=== PATIENT | male | born 1940 | race Caucasian/White ===

== ENCOUNTER → 2017-05-01 | Outpatient (CLI) | payer MEDICARE, OTHER ==
[~2017-05-01] MED LIST: ASPI81TA17 PO; FELO5TAB PO; KETO10 PO; LISI-363 PO; MEDR4PAK3 PO; NEXI40CA PO; PERC5TAB12 PO; ROBA750T3 PO; TAB-TAB PO; VITA500T83 PO
== END ==
LOC: PHSDC 08:28
PROVIDERS: ATTEND Ophthalmology
DX: H26.492 Other secondary cataract, left eye (principal); H43.813 Vitreous degeneration, bilateral; H18.59 Other hereditary corneal dystrophies; I10 Essential (primary) hypertension; Z96.1 Presence of intraocular lens; Z85.46 Personal history of malignant neoplasm of prostate; Z92.3 Personal history of irradiation; Z79.82 Long term (current) use of aspirin

== ENCOUNTER → 2017-05-22 | Outpatient (CLI) | payer MEDICARE, OTHER ==
--- NOTE | 2017-05-01 08:36 | MH ---
cc: MONTANA BARILLAS DATE OF ADMISSION: 05/22/2017 ADMISSION DIAGNOSIS Cloudy posterior capsule, left eye. HISTORY OF PRESENT ILLNESS This 76-year-old white male is coming through [facility] for the purpose of a YAG laser posterior capsulotomy of the left eye. He is status post bilateral cataract surgery with intraocular lens implants in 2012 and did well postoperatively but now notices decreasing visual acuity, particularly in his left eye and was found to have a cloudy posterior capsule greater in the left eye than the right and elected to have a YAG laser posterior capsulotomy of the left eye at this time. PAST MEDICAL HISTORY The patient has a history of: 1. Hypertension. 2. Prostate cancer. 3. Sciatic nerve problems. PAST SURGICAL HISTORY 1. Bilateral cataract surgery. 2. Abdominal aortic aneurysm. 3. Hernia surgery. 4. Radiation for his prostate cancer. MEDICATIONS Daily medications include: 1. Nexium. 2. Felodipine. 3. Lisinopril. 4. Aspirin. 5. Multivitamins. 6. Vitamin C. 7. Zytiga. ALLERGIES No known allergies. SOCIAL HISTORY, FAMILY HISTORY AND REVIEW OF SYSTEMS All noncontributory. OCULAR EXAM The patient's best corrected visual acuity in room light is 20/30 -1 in the right eye and 20/70 -1 +1 in the left. Visual elliott are full to confrontation testing. Extraocular muscle exam reveals full versions with orthophoria at distance and exophoria at near. Pupils are 3 mm equal, round, and reactive to light without afferent defect. Anterior segment examination reveals a mild ectropion of the lower lids and some central cloudy corneal dystrophy in each eye. A posterior chamber intraocular lens is in place bilaterally with a cloudy posterior capsule greater in the left eye than the right. Intraocular pressure is 22 in the right eye and 19 in the left by applanation tonometry. Dilated fundus exam revealed sharp disks with cup-to-disk ratio 0.4 bilaterally. The macula is clear bilaterally. A posterior vitreous detachment is present bilaterally. IMPRESSION 1. Cloudy posterior capsule, left eye greater than right. 2. Pseudophakia, both eyes. 3. Central cloudy corneal dystrophy, both eyes. 4. Posterior vitreous detachment, both eyes. PLAN The plan is YAG laser posterior capsulotomy of the left eye through [facility]. MD RODY Cox/THERESA /2:03 PM /8:30 AM MIMI
[~2017-05-22] MED LIST changes: +BALANCED SALT SOLN OPHT IRRIG 15 ML BTL ONE; +FLUOROMETHOLONE 0.25% OPHT SUSP 5 ML BTL LEFT EYE ONE; +FLUOROMETHOLONE 0.25% OPHT SUSP 5 ML BTL ONE; +HYPROMELLOSE 0.3 % OPTH GEL 10 GM (0.34 FL OZ) TUBE ONE; +PHENYLEPHRINE HCL 2.5% OPTH SOLN 2 ML BTL LEFT EYE ONE; +PHENYLEPHRINE HCL 2.5% OPTH SOLN 2 ML BTL ONE; +PROPARACAINE HCL 0.5% OPHT SOLN 15 ML BTL LEFT EYE ONE; +PROPARACAINE HCL 0.5% OPHT SOLN 15 ML BTL ONE; +TROPICAMIDE 1% OPHT SOLN 15 ML BTL LEFT EYE ONE; +TROPICAMIDE 1% OPHT SOLN 15 ML BTL ONE; +prednisoLONE ACETATE 1% OPHT SUSP 5 ML BTL ONE
--- NOTE | 2017-05-22 08:57 | MP ---
cc: MONTANA MERINO DATE OF SURGERY: 05/22/2017 PREOPERATIVE DIAGNOSIS Cloudy posterior capsule, left eye. POSTOPERATIVE DIAGNOSIS Cloudy posterior capsule, left eye. OPERATION YAG laser posterior capsulotomy, left eye. SURGEON Montana Merino MD ANESTHESIA Topical. COMPLICATIONS None. INDICATIONS See history and physical previously dictated. PROCEDURE Blood pressure 144/58, pulse 99, respirations 18. A drop of Alphagan P and Mydriacyl were instilled in the left eye. The patient was seated at the YAG laser. A drop of Alcaine was instilled in the left eye and a YAG laser posterior capsulotomy lens was placed on the anterior surface of the left cornea. YAG laser posterior capsulotomy was carried out utilizing 166 exposures of 1.4 millijoules. An adequate opening was seen following the procedure. A drop of Alphagan P was instilled topically. The patient was given a prescription for a topical steroid to be used four times per day and has an appointment for follow up on the first postoperative day in my office. [facility] satisfactory condition. Montana Merino MD SENIOR PLANNER/BT /8:26 AM /8:45 AM
== END ==
LOC: PHSDC 07:00
PROVIDERS: ATTEND Ophthalmology
DX: H26.492 Other secondary cataract, left eye (principal)

== ENCOUNTER 2017-12-13 16:53 | Observation (INO) | payer MEDICARE, OTHER ==
[~2017-12-13 16:53] MED LIST changes: -BALANCED SALT SOLN OPHT IRRIG 15 ML BTL ONE; -FLUOROMETHOLONE 0.25% OPHT SUSP 5 ML BTL LEFT EYE ONE; -FLUOROMETHOLONE 0.25% OPHT SUSP 5 ML BTL ONE; -HYPROMELLOSE 0.3 % OPTH GEL 10 GM (0.34 FL OZ) TUBE ONE; -PHENYLEPHRINE HCL 2.5% OPTH SOLN 2 ML BTL LEFT EYE ONE; -PHENYLEPHRINE HCL 2.5% OPTH SOLN 2 ML BTL ONE; -PROPARACAINE HCL 0.5% OPHT SOLN 15 ML BTL LEFT EYE ONE; -PROPARACAINE HCL 0.5% OPHT SOLN 15 ML BTL ONE; -TROPICAMIDE 1% OPHT SOLN 15 ML BTL LEFT EYE ONE; -TROPICAMIDE 1% OPHT SOLN 15 ML BTL ONE; -prednisoLONE ACETATE 1% OPHT SUSP 5 ML BTL ONE
[2017-12-13] MEDS ORDERED: IOHEXOL 350 MG/ML 10 ML VIAL (for RAD DIAG) IVCONTRAST ONE (16:54)
[2017-12-13 17:13] VITALS: BP 199/100; PULSE 113; RESP 18; TEMP 98.1; O2SAT 97
[2017-12-13] MEDS ORDERED: MORPHINE SULFATE 4 MG/ML INJ IV PUSH ONE (17:30)
[2017-12-13] MEDS ORDERED: RESP: ALBUTEROL 2.5 MG/IPRATROPIUM 0.5 MG NEB (SCH) NEB ONE ×2 (17:30)
[2017-12-13] MEDS ORDERED: ONDANSETRON ODT 4 MG TAB PO ONE (17:30)
[2017-12-13] MEDS ORDERED: predniSONE 20 MG TAB PO ONE (17:30)
[2017-12-13 17:33] LABS: AUTOMATED NEUTROPHIL # 11.3 TH/MM3 (1.8-7.7); BASOPHIL # 0.1 TH/MM3 (0-0.2); BASOPHIL % 0.5 % (0.0-2.0); EOSINOPHIL # 0.2 TH/MM3 (0-0.4); EOSINOPHIL % 1.4 % (0.0-4.0); HEMATOCRIT 40.5 % (39.0-51.0); HEMOGLOBIN 13.8 GM/DL (13.0-17.0); LYMPH % 14.1 % (9.0-44.0); LYMPHOCYTE # 2.1 TH/MM3 (1.0-4.8); MEAN CELL VOLUME 92.6 FL (80.0-100.0); MEAN CORPUSCULAR HEMOGLOBIN 31.5 PG (27.0-34.0); MONO % 7.1 % (0.0-8.0); MONOCYTE # 1.1 TH/MM3 (0-0.9); NEUT % 76.9 % (16.0-70.0); PLATELET COUNT 386 TH/MM3 (150-450); RED BLOOD COUNT 4.37 MIL/MM3 (4.50-5.90); RED CELL DISTRIBUTION WIDTH 13.6 % (11.6-17.2); WHITE BLOOD COUNT 14.8 TH/MM3 (4.0-11.0)
--- NOTE | 2017-12-13 17:45 | PD ---
HPI Chief Complaint: Chest Pain Time Seen by Provider: 17:19 Travel History International Travel<30 days: No Contact w/Intl Traveler<30days: No Traveled to known affect area: No History of Present Illness HPI This patient complains of chest pain. Duration 2 hours. Severity is moderate to severe. No alleviating factors. He describes as a dull aching pressure. Is located in the center and right lower chest. He denies history of cardiac disease. He has been smoking for 60 years and takes daily prednisone and uses inhalers. No fever or productive cough. No exacerbating factors. Symptoms are not exertional. He is short of breath PFSH Past Medical History Asthma: No Heart Rhythm Problems: No Cancer: Yes (PROSTATE CA 2009 RADIATION RX ) Cardiovascular Problems: No High Cholesterol: Yes Chest Pain: No Congestive Heart Failure: No COPD: No Cerebrovascular Accident: No Diabetes: No Diminished Hearing: No Endocrine: No GERD: Yes Genitourinary: No Hepatitis: No Hiatal Hernia: No Hypertension: Yes Immune Disorder: No Musculoskeletal: Yes (ARTHRITIS ) Neurologic: No Psychiatric: Yes (CLAUSTROPHOBIA) Reproductive: No Respiratory: No Migraines: No Radiation Therapy: Yes (2008) Seizures: No Sleep Apnea: No Thyroid Disease: No Ulcer: No Past Surgical History Abdominal Surgery: Yes (AAA REPAIR -; RT INGUINAL HERNIA REPAIR) Cardiac Surgery: No Ear Surgery: No Endocrine Surgery: No Eye Surgery: Yes (CATARACT SX RIGHT EYE ) Genitourinary Surgery: No Gynecologic Surgery: No Joint Replacement: No Oral Surgery: No Pacemaker: No Thoracic Surgery: No Other Surgery: Yes (SKIN CANCER REMOVAL) Social History Alcohol Use: No Tobacco Use: Yes (2-3 DAY) Substance Use: No Allergies-Medications (Allergen,Severity, Reaction): Coded Allergies: No Known Allergies (Unverified , 01/21/15) Reported Meds & Prescriptions Reported Meds & Active Scripts Active Percocet 5-325 mg (Oxycodone/Acetaminophen) Oxycodone 5/325 Acetaminophen Tab 1 Tab PO Q6H PRN Toradol (Ketorolac Tromethamine) 10 Mg Tab 10 Mg PO Q6 PRN *DO NOT EXCEED 40 MG/DAY* *DURATION IS NOT TO EXCEED 5 DAYS* Medrol Dosepak (Methylprednisolone) 4 Mg Kendrick 4 Mg PO DIRECTED TAKE DIRECTED Robaxin-750 (Methocarbamol) 750 Mg Tab 750 Mg PO QID PRN Reported Vitamin C (Ascorbic Acid) 500 Mg Tab 500 Mg PO DAILY Multivitamin (Multivitamins) 1 Tab Tab 1 Tab PO DAILY Aspirin EC Low Dose (Aspirin) 81 Mg Tab 81 Mg PO DAILY Lisinopril 20 mg (Lisinopril) 20 Mg Tab 20 Mg PO DAILY Felodipine Er (Felodipine) 5 Mg Tab 5 Mg PO DAILY Nexium (Esomeprazole Magnesium) 40 Mg Cap 40 Mg PO DAILY Review of Systems General / Constitutional: No: Fever Eyes: No: Visual changes HENT: No: Headaches Cardiovascular: Positive: Chest Pain or Discomfort, Tachycardia Respiratory: Positive: Shortness of Breath Gastrointestinal: No: Abdominal Pain Genitourinary: No: Dysuria Musculoskeletal: No: Pain Skin: No Rash Neurologic: No: Weakness Psychiatric: No: Depression Endocrine: No: Polydipsia Hematologic/Lymphatic: No: Easy Bruising Physical Exam Narrative GENERAL: Well-nourished, well-developed patient in distress from chest pain And shortness of breath. SKIN: Focused skin assessment reveals no rash and nodules. Skin is Warm and dry. HEAD: Atraumatic. Normocephalic. EYES: Pupils equal and round. No scleral icterus. No injection or drainage. ENT: No nasal bleeding or discharge. Mucous membranes pink and moist. NECK: Trachea midline. No JVD. CARDIOVASCULAR: Regular rate and rhythm. No murmur appreciated. Tachycardic 115 RESPIRATORY: No accessory muscle use. Clear to auscultation. Breath sounds equal bilaterally. GASTROINTESTINAL: Abdomen soft, non-tender, nondistended. Hepatic and splenic margins not palpable. MUSCULOSKELETAL: No obvious deformities. No clubbing. No cyanosis. No edema. NEUROLOGICAL: Awake and alert. No obvious cranial nerve deficits. Motor grossly within normal limits. Normal speech. PSYCHIATRIC: Appropriate mood and affect; insight and judgment normal. Data Data Last Documented VS Vital Signs Date Time Temp Pulse Resp B/P (MAP) Pulse Ox O2 Delivery O2 Flow Rate FiO2 12/13/17 17:13 98.1 113 18 199/100 (133) 97 Orders Orders Electrocardiogram (12/13/17 ) Complete Blood Count With Diff (12/13/17 17:01) Basic Metabolic Panel (Bmp) (12/13/17 17:01) Ckmb (Isoenzyme) Profile (12/13/17 17:01) Troponin I (12/13/17 17:01) Prothrombin Time / Inr (Pt) (12/13/17 17:29) Act Partial Throm Time (Ptt) (12/13/17 17:29) Chest, Single Ap (12/13/17 ) Morphine Inj (Morphine Inj) (12/13/17 17:30) Ondansetron Odt (Zofran Odt) (12/13/17 17:30) Albuterol-Ipratropium Neb (Duoneb Neb) (12/13/17 17:30) Albuterol-Ipratropium Neb (Duoneb Neb) (12/13/17 17:30) Prednisone (Deltasone) (12/13/17 17:30) Labs Laboratory Tests Test 12/13/17 17:04 White Blood Count 14.8 TH/MM3 Red Blood Count 4.37 MIL/MM3 Hemoglobin 13.8 GM/DL Hematocrit 40.5 % Mean Corpuscular Volume 92.6 FL Mean Corpuscular Hemoglobin 31.5 PG Mean Corpuscular Hemoglobin Concent 34.0 % Red Cell Distribution Width 13.6 % Platelet Count 386 TH/MM3 Mean Platelet Volume 7.0 FL Neutrophils (%) (Auto) 76.9 % Lymphocytes (%) (Auto) 14.1 % Monocytes (%) (Auto) 7.1 % Eosinophils (%) (Auto) 1.4 % Basophils (%) (Auto) 0.5 % Neutrophils # (Auto) 11.3 TH/MM3 Lymphocytes # (Auto) 2.1 TH/MM3 Monocytes # (Auto) 1.1 TH/MM3 Eosinophils # (Auto) 0.2 TH/MM3 Basophils # (Auto) 0.1 TH/MM3 CBC Comment DIFF FINAL Differential Comment Total Creatine Kinase 46 U/L Troponin I LESS THAN 0.02 NG/ML MDM Medical Decision Making Medical Screen Exam Complete: Yes Emergency Medical Condition: Yes Medical Record Reviewed: Yes Differential Diagnosis Differential diagnosis includes MO, angina, pericarditis, pleurisy, GERD, PE, aortic aneurysm Narrative Course I have reviewed the patient's electronic medical record. I have initiated a workup to start with lab studies and EKG and chest x-ray EKG shows sinus tachycardia without ST elevation I gave him a dose of morphine and Zofran for symptom relief Also gave him multiple nebulizers and a dose of steroid use. Chest x-ray is normal. Labs are pending. Checked out to the evening physician Critical Care Narrative Aggregate critical care time was 40 minutes. Time to perform other separately billable procedures was not included in the critical care time. My time did not include minutes spent treating any other patients simultaneously or on activities that did not directly contribute to the patient's treatment. The services I provided to this patient were to treat and/or prevent clinically significant deterioration that could result in: Cardiopulmonary arrest, myocardial infarction, cardiac arrhythmia, respiratory collapse I provided critical care services requiring my management, as noted below: Chart data review, documentation time, medication orders and management, vital sign assessments/reviewing monitor data, ordering and reviewing lab tests, ordering and interpreting/reviewing x-rays and diagnostic studies, care of the patient and discussion of the patient with the admitting physicians. Patrick Lackey MD December 13, 2017 17:45
[2017-12-13 17:54] LABS: TROPONIN I LESS THAN 0.02 NG/ML (0.02-0.05)
--- NOTE | 2017-12-13 18:04 | RADRPT ---
EXAM DATE/TIME: 12/13/2017 17:38 [facility] COMPARISON: CHEST SINGLE AP, July 15, 2012, 9:53. INDICATIONS : Chest pain. MEDICAL HISTORY : None. SURGICAL HISTORY : Abdominal aortic aneurysm repair. ENCOUNTER: Initial ACUITY: 1 day PAIN SCORE: 10/10 LOCATION: Right chest FINDINGS: 2 portable frontal views of the chest show lungs to be clear. No infiltrate or effusion. Heart is nor mal in size. There is increase in density of the bony structures particular involving the lumbar spin e. CONCLUSION: 1. Sclerotic changes involving the lumbar spine and other visualized bony structures in a diffuse fas hion worrisome for metastatic disease. Vincenzo Trujillo Jr., MD on December 13, 2017 at 18:00 Board Certified Radiologist. This report was verified electronically.
[2017-12-13 19:01] LABS: BICARBONATE 27.2 MEQ/L (21.0-32.0); BLOOD UREA NITROGEN 25 MG/DL (7-18); CALCIUM 9.7 MG/DL (8.5-10.1); CHLORIDE 99 MEQ/L (98-107); CREATININE 1.06 MG/DL (0.60-1.30); GLOMERULAR FILTRATION RATE 68 ML/MIN (>89); GLUCOSE,RANDOM 104 MG/DL (74-106); SODIUM (NA) 136 MEQ/L (136-145)
--- NOTE | 2017-12-13 20:35 | RADRPT ---
EXAM DATE/TIME: 12/13/2017 20:16 [facility] COMPARISON: No previous studies available for comparison. INDICATIONS : Short of breath. IV CONTRAST: 80 cc Omnipaque 350 (iohexol) IV RADIATION DOSE: 15.41 CTDIvol (mGy) MEDICAL HISTORY : Hypertension. Carcinoma, prostate. SURGICAL HISTORY : None. ENCOUNTER: Initial ACUITY: 1 day PAIN SCALE: 4/10 LOCATION: chest TECHNIQUE: Volumetric scanning of the chest was performed using a pulmonary embolism protocol MIP images were re constructed. Using automated exposure control and adjustment of the mA and/or kV according to patien t size, radiation dose was kept as low as reasonably achievable to obtain optimal diagnostic quality images. DICOM format image data is available electronically for review and comparison. Follow-up recommendations for detected pulmonary nodules are based at a minimum on nodule size and pa tient risk factors according to Fleischner Society Guidelines. FINDINGS: PULMONARY ARTERIES: No filling defects are seen in the pulmonary arteries through the segmental level. LUNGS: Diffuse emphysematous changes. Chronic interstitial changes within the visualized lung bases. There i s associated mild cylindrical bronchiectasis involving the right basilar segments. No acute infiltrat e. No discrete parenchymal mass. PLEURAE: There is no pleural thickening or pleural effusion. MEDIASTINUM: The heart is normal in size without pericardial effusion. Significant coronary artery and aortic athe rosclerotic calcifications are noted. This generates an irregular luminal contour to the descending a shakira. No mass or adenopathy. MUSCULOSKELETAL: Diffuse sclerotic metastases throughout all visualized bony structures. No acute fracture observed. MISCELLANEOUS: The visualized upper abdominal organs demonstrate no acute abnormality. CONCLUSION: 1. Diffuse sclerotic metastases. Consider prostate cancer. 2. No pulmonary emboli. 3. 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 4. Emphysematous change. Vincenzo Trujillo Jr., MD on December 13, 2017 at 20:29 Board Certified Radiologist. This report was verified electronically.
[2017-12-13 20:41] LABS: INTERNATIONAL NORMALIZED RATIO 0.9 RATIO; PROTHROMBIN TIME - PATIENT 9.6 SEC (9.8-11.6)
--- NOTE | 2017-12-13 21:13 | PD ---
Data Data Last Documented VS Vital Signs Date Time Temp Pulse Resp B/P (MAP) Pulse Ox O2 Delivery O2 Flow Rate FiO2 12/13/17 17:13 98.1 113 18 199/100 (133) 97 Orders Orders Electrocardiogram (12/13/17 ) Complete Blood Count With Diff (12/13/17 17:01) Basic Metabolic Panel (Bmp) (12/13/17 17:01) Ckmb (Isoenzyme) Profile (12/13/17 17:01) Troponin I (12/13/17 17:01) Prothrombin Time / Inr (Pt) (12/13/17 17:29) Act Partial Throm Time (Ptt) (12/13/17 17:29) Chest, Single Ap (12/13/17 ) Morphine Inj (Morphine Inj) (12/13/17 17:30) Ondansetron Odt (Zofran Odt) (12/13/17 17:30) Albuterol-Ipratropium Neb (Duoneb Neb) (12/13/17 17:30) Albuterol-Ipratropium Neb (Duoneb Neb) (12/13/17 17:30) Prednisone (Deltasone) (12/13/17 17:30) Ct Pulmonary Angiogram (12/13/17 ) Iohexol 350 Inj (Omnipaque 350 Inj) (12/13/17 16:54) Oxymetazoline 0.05% Kemar Gardner (Afrin 0.0 (12/13/17 21:15) Admit Order (Ed Use Only) (12/13/17 ) Business Development Director / Telemetry TORSTEN.Q8H (12/13/17 21:51) Vital Signs (Adult) Q4H (12/13/17 21:51) Diet Heart Healthy (12/14/17 Breakfast) Activity Bed Rest (12/13/17 21:51) Notify Dr: Other (12/13/17 21:51) Labs Laboratory Tests Test 12/13/17 17:04 12/13/17 19:40 White Blood Count 14.8 TH/MM3 Red Blood Count 4.37 MIL/MM3 Hemoglobin 13.8 GM/DL Hematocrit 40.5 % Mean Corpuscular Volume 92.6 FL Mean Corpuscular Hemoglobin 31.5 PG Mean Corpuscular Hemoglobin Concent 34.0 % Red Cell Distribution Width 13.6 % Platelet Count 386 TH/MM3 Mean Platelet Volume 7.0 FL Neutrophils (%) (Auto) 76.9 % Lymphocytes (%) (Auto) 14.1 % Monocytes (%) (Auto) 7.1 % Eosinophils (%) (Auto) 1.4 % Basophils (%) (Auto) 0.5 % Neutrophils # (Auto) 11.3 TH/MM3 Lymphocytes # (Auto) 2.1 TH/MM3 Monocytes # (Auto) 1.1 TH/MM3 Eosinophils # (Auto) 0.2 TH/MM3 Basophils # (Auto) 0.1 TH/MM3 CBC Comment DIFF FINAL Differential Comment Blood Urea Nitrogen 25 MG/DL Creatinine 1.06 MG/DL Random Glucose 104 MG/DL Calcium Level 9.7 MG/DL Sodium Level 136 MEQ/L Potassium Level 4.2 MEQ/L Chloride Level 99 MEQ/L Carbon Dioxide Level 27.2 MEQ/L Anion Gap 10 MEQ/L Estimat Glomerular Filtration Rate 68 ML/MIN Total Creatine Kinase 46 U/L Troponin I LESS THAN 0.02 NG/ML Prothrombin Time 9.6 SEC Prothromb Time International Ratio 0.9 RATIO Activated Partial Thromboplast Time 24.7 SEC [facility] Medical Record Reviewed: Yes Supervised Visit with GRISELDA: No Narrative Course Please refer to the outgoing provider note. The EKG shows no acute ischemic injury pattern. We can see the CT scan reveals bone disease without PE. There is calcification of the coronary vasculature. The patient takes aspirin daily. He has history of hypertension. There is a family history of coronary artery disease in the father side. Is also 77-year-old male. This raises his ZACHARY risk score to about 3. The patient will be a candidate for chest pain center however he is tachycardic to about 110 with an unknown etiology at this time. He also has persistent pleuritic pain primarily on the right side. D/w Dr Fraser. Diagnosis Primary Impression: Chest pain Qualified Codes: R07.9 - Chest pain, unspecified Additional Impressions: Tachypnea SOB (shortness of breath) Prostate CA Tachycardia Admitting Information Admitting Physician Requests: Josh Mujica MD December 13, 2017 21:13
[2017-12-13] MEDS ORDERED: OXYMETAZOLINE HCL 0.05% 15 ML NASAL SPRAY NASAL ONE (21:15)
[2017-12-13] MEDS ORDERED: TAMS0.4C4 (21:47)
[2017-12-13] MEDS ORDERED: LISI-515 PO (21:47)
[2017-12-13] MEDS ORDERED: VITA250T3 PO (21:47)
[2017-12-13] MEDS ORDERED: ZYTI250T PO (21:47)
[2017-12-13] MEDS ORDERED: MULT-65 PO (21:47)
[2017-12-13] MEDS ORDERED: VITA200C3 PO (21:47)
[2017-12-13] MEDS ORDERED: PRED5TAB PO (21:47)
[2017-12-13] MEDS ORDERED: FELO5TAB PO (21:47)
[2017-12-13] MEDS ORDERED: ASPI-516 CHEW (21:47)
[2017-12-13] MEDS ORDERED: ESOM1CAP16 PO (21:47)
[2017-12-13] MEDS ORDERED: MAGNESIUM HYDROXIDE SUSP 30 ML CUP PO PRN (22:00)
[2017-12-13] MEDS ORDERED: LACTULOSE SYRUP 20 GM/30 ML CUP PO PRN (22:00)
[2017-12-13] MEDS ORDERED: ACETAMINOPHEN 325 MG TAB PO PRN (22:00)
[2017-12-13] MEDS ORDERED: MORPHINE SULFATE 4 MG/ML INJ IV PUSH PRN (22:00)
[2017-12-13] MEDS ORDERED: SENNOSIDES 8.6 MG TAB PO PRN (22:00)
[2017-12-13] MEDS ORDERED: RESP: ALBUTEROL 2.5 MG/IPRATROPIUM 0.5 MG NEB (PRN) NEB (22:00)
[2017-12-13] MEDS ORDERED: SODIUM CHLORIDE 0.9% FLUSH 10 ML FLUSH IV FLUSH PRN (22:00)
[2017-12-13] MEDS ORDERED: METOCLOPRAMIDE HCL 10 MG/2 ML VIAL IV PUSH PRN (22:00)
[2017-12-13] MEDS ORDERED: BISACODYL 10 MG SUPP RECTAL PRN (22:00)
[2017-12-13] MEDS ORDERED: ACETAMINOPHEN/HYDROcodone 325 MG/5 MG TAB PO PRN (22:00)
[2017-12-13 22:17] VITALS: BP 158/97; PULSE 110; RESP 18; O2SAT 94
[2017-12-13 22:58] VITALS: BP 183/86; PULSE 103; RESP 16; TEMP 98.4; O2SAT 94
[2017-12-14] VITALS (8 sets, daily range): BP systolic 133–189; BP diastolic 64–93; PULSE 82–99; RESP 16–18; TEMP 97.8–98.7; O2SAT 96–98
--- NOTE | 2017-12-14 00:36 | HHI.HP ---
HPI Service [facility] Primary Care Physician Bradly Nielson MD Admission Diagnosis Pleuritic Chest Pain; Tachycardia Diagnoses: (1) Chest pain Diagnosis: Principal (2) Tachycardia Diagnosis: Principal (3) SOB (shortness of breath) Diagnosis: Principal (4) Prostate CA Diagnosis: Principal Travel History International Travel<30 Days: No Contact w/Intl Traveler <30 Da: No Traveled to Known Affected Are: No History of Present Illness This is a 69-year-old male with a PMH of Metastatic Prostate CA, HTN and Tobacco Abuse who presented to the ER with complaints of chest pain x2 hrs. States chest pain is substernal, moderate, 7/10, non-radiating, worse w/ deep inspiration. Pt states he was recently seen at Urgent Care approx 2wks ago for URI, s/p antibiotics w/ some improvement. Takes Prednisone 5mg qd. Denies fever, chills, cough or sick contacts. On arrival, BP 199/100, HR 113, O2 sat 97% on RA, Afebrile. WBC 14.8. Chemistry essentially unremarkable except for BUN 25. Troponin negative. INR 0.9. CXR sclerotic changes involving lumbar spine consistent with metastatic disease. CTA Pulm negative for PE, diffuse sclerotic metastases, diffuse atherosclerotic disease of the thoracic aorta and coronary arteries. Pt states he is aware of spinal mets from Prostate CA, however unaware of pulmonary metastasis. Follows w/ Dr. Allen for Urology. While in ER pt w/ persistent tachycardia and c/o chest pain, asked to admit for further evaluation. Review of Systems Except as stated in HPI: all other systems reviewed are Neg ROS: 14 point review of systems otherwise negative. Past Family Social History Past Medical History PMH: Metastatic Prostate CA, HTN and Tobacco Abuse Past Surgical History PAST SURGICAL HISTORY: AAA Repair, Right Inguinal Hernia, Cataract Surgery Allergies: Coded Allergies: No Known Allergies (Unverified , 01/21/15) Family History PAST FAMILY HISTORY: Reviewed. No h/o DM or CAD Social History PAST SOCIAL HISTORY: Smokes 2-3 cigarettes per day. Negative for alcohol or drugs. Physical Exam Vital Signs Vital Signs Date Time Temp Pulse Resp B/P (MAP) Pulse Ox O2 Delivery O2 Flow Rate FiO2 12/14/17 00:17 98.7 89 16 151/82 (105) 96 12/13/17 22:58 98.4 103 16 183/86 (118) 94 12/13/17 22:17 110 18 158/97 (117) 94 Nasal Cannula 2.00 12/13/17 17:13 98.1 113 18 199/100 (133) 97 Physical Exam PE: GENERAL: Elderly white male in no acute distress. Family at bedside. HEENT: PERRLA, EOMI. No scleral icterus or conjunctival pallor. No lid lag or facial droop. CARDIOVASCULAR: Tachycardia, HR 112. No obvious murmurs to auscultation. No chest tenderness to palpation. RESPIRATORY: No obvious rhonchi or wheezing. Clear to auscultation. Breath sounds equal bilaterally. GASTROINTESTINAL: Abdomen soft, non-tender, nondistended. BS normal. MUSCULOSKELETAL: Extremities without clubbing, cyanosis, or edema. No obvious deformities. NEUROLOGICAL: Awake, alert and oriented x4. No focal neurologic deficits. Moving both upper and lower extremities spontaneously. Laboratory Laboratory Tests Test 12/13/17 17:04 12/13/17 19:40 White Blood Count 14.8 Red Blood Count 4.37 Hemoglobin 13.8 Hematocrit 40.5 Mean Corpuscular Volume 92.6 Mean Corpuscular Hemoglobin 31.5 Mean Corpuscular Hemoglobin Concent 34.0 Red Cell Distribution Width 13.6 Platelet Count 386 Mean Platelet Volume 7.0 Neutrophils (%) (Auto) 76.9 Lymphocytes (%) (Auto) 14.1 Monocytes (%) (Auto) 7.1 Eosinophils (%) (Auto) 1.4 Basophils (%) (Auto) 0.5 Neutrophils # (Auto) 11.3 Lymphocytes # (Auto) 2.1 Monocytes # (Auto) 1.1 Eosinophils # (Auto) 0.2 Basophils # (Auto) 0.1 CBC Comment DIFF FINAL Differential Comment Blood Urea Nitrogen 25 Creatinine 1.06 Random Glucose 104 Calcium Level 9.7 Sodium Level 136 Potassium Level 4.2 Chloride Level 99 Carbon Dioxide Level 27.2 Anion Gap 10 Estimat Glomerular Filtration Rate 68 Total Creatine Kinase 46 Troponin I LESS THAN 0.02 Prothrombin Time 9.6 Prothromb Time International Ratio 0.9 Activated Partial Thromboplast Time 24.7 Result Diagram: 12/13/17170312/13/17 170 Caprini VTE Risk Assessment Caprini VTE Risk Assessment: No/Low Risk (score <= 1) Caprini Risk Assessment Model Point Value = 1 Point Value = 2 Point Value = 3 Point Value = 5 Age 41-60 Minor surgery BMI > 25 kg/m2 Swollen legs Varicose veins or History of unexplained or recurrent spontaneous Oral contraceptives or hormone replacement Sepsis (< 1 month) Serious lung disease, including pneumonia (< 1 month) Abnormal pulmonary function Acute myocardial infarction Congestive heart failure (< 1 month) History of inflammatory bowel disease Medical patient at bed rest Age 61-74 Arthroscopic surgery Major open surgery (> 45 min) Laparoscopic surgery (> 45 min) Malignancy Confined to bed (> 72 hours) Immobilizing plaster cast Central venous access Age >= 75 History of VTE Family history of VTE Factor V Leiden Prothrombin [id number] Lupus anticoagulant Anticardiolipin antibodies Elevated serum homocysteine Heparin-induced thrombocytopenia Other congenital or acquired thrombophilia Stroke (< 1 month) Elective arthroplasty Hip, pelvis, or leg fracture Acute spinal cord injury (< 1 month) Prophylaxis Regimen Total Risk Factor Score Risk Level Prophylaxis Regimen 0-1 Low Early ambulation 2 Moderate Order ONE of the following: *Sequential Compression Device (SCD) *Heparin 5000 units SQ BID 3-4 Higher Order ONE of the following medications: *Heparin 5000 units SQ TID *Enoxaparin/Lovenox 40 mg SQ daily (WT < 150 kg, CrCl > 30 mL/min) *Enoxaparin/Lovenox 30 mg SQ daily (WT < 150 kg, CrCl > 10-29 mL/min) *Enoxaparin/Lovenox 30 mg SQ BID (WT < 150 kg, CrCl > 30 mL/min) AND/OR *Sequential Compression Device (SCD) 5 or more Highest Order ONE of the following medications: *Heparin 5000 units SQ TID (Preferred with Epidurals) *Enoxaparin/Lovenox 40 mg SQ daily (WT < 150 kg, CrCl > 30 mL/min) *Enoxaparin/Lovenox 30 mg SQ daily (WT < 150 kg, CrCl > 10-29 mL/min) *Enoxaparin/Lovenox 30 mg SQ BID (WT < 150 kg, CrCl > 30 mL/min) AND *Sequential Compression Device (SCD) Assessment and Plan Problem List: (1) Chest pain ICD Code: R07.9 - Chest pain, unspecified Status: Acute (2) Tachycardia ICD Code: R00.0 - Tachycardia, unspecified (3) SOB (shortness of breath) ICD Code: R06.02 - Shortness of breath (4) Prostate CA ICD Code: C61 - Malignant neoplasm of prostate Assessment and Plan A/P: 1. Chest Pain: pleuritic in nature, possibly due to bronchospasm from postnasal drip/recent URI, however CTA Pulm w/ significant atherosclerotic disease of aorta and coronary arteries, r/o ACS. Initial trop negative, EKG w/ no acute ischemia. Admit to Observation, telemetry, check serial cardiac enzymes. ASA, Statin, Metoprolol. NTG/Morphine prn. Check Lipid Profile. Consult Cardiology as needed for further evaluation. 2. Tachycardia: HR 110's while in ER, sinus, s/p DuoNeb in ER in addition to Afrin likely contributing to tachycardia. Will switch to Xopenex, hold Afrin. 3. SOB: likely multifactorial, recent URI/postnasal gtt w/ likely bronchospasm in addition to pulmonary metastasis on CTA, no PE noted. Symbicort , Xopenex prn, WBC however on chronic steroid therapy and no signs of infection on imaging, will hold off on antibiotics at this time. 4. Prostate CA: w/ Mets to spine, CTA Pulm showered scattered metastatic disease, pt unaware of pulmonary mets until now, following w/ Dr. Allen as outpatient, continue w/ outpatient follow up as scheduled. 5. DVT Prophylaxis: SCD/Teds 6. Social work for d/c planning as needed. 7. Case discussed w/ ER physician at length, labs/records/imaging reviewed by Melia Diana MD December 14, 2017 00:36
[2017-12-14] MEDS: SODIUM CHLOR 0.9% 1000 ML INJ 1,000 ML IV SCH ×2 (02:30→08:20)
--- NOTE | 2017-12-14 08:16 | HHI.PR ---
Subjective Remarks Follow with Pleuritic chest pain December 14, 2017-patient seen and examined, reports significant improvement of chest pressure and pain. Denies any shortness of breath or dizziness. Vital stable this morning. Objective Vitals Vital Signs Date Time Temp Pulse Resp B/P (MAP) Pulse Ox O2 Delivery O2 Flow Rate FiO2 12/14/17 07:57 97.8 99 18 171/93 (119) 96 12/14/17 04:00 95 12/14/17 03:54 98.3 91 16 133/64 (87) 97 12/14/17 02:00 93 12/14/17 00:17 98.7 89 16 151/82 (105) 96 12/13/17 22:58 98.4 103 16 183/86 (118) 94 12/13/17 22:17 110 18 158/97 (117) 94 Nasal Cannula 2.00 12/13/17 17:13 98.1 113 18 199/100 (133) 97 I/O 12/13/17 12/13/17 12/13/17 12/14/17 12/14/17 12/14/17 07:00 15:00 23:00 07:00 15:00 23:00 Output Total 300 ml 475 ml Balance -300 ml -475 ml Output Urine Total 300 ml 475 ml Result Diagram: 12/13/17 1704 12/13/17 1704 Imaging Last Impressions Chest X-Ray 12/13/17 0000 Signed Impressions: Service Date/Time: Wednesday, December 13, 2017 17:38 - CONCLUSION: 1. Sclerotic changes involving the lumbar spine and other visualized bony structures in a diffuse fashion worrisome for metastatic disease. Vincenzo Trujillo Jr., MD CT Angiography 12/13/17 0000 Signed Impressions: Service Date/Time: Wednesday, December 13, 2017 20:16 - CONCLUSION: 1. Diffuse sclerotic metastases. Consider prostate cancer. 2. No pulmonary emboli. 3. 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 4. Emphysematous change. Vincenzo Trujillo Jr., MD Objective Remarks GENERAL: NAD SKIN: Warm and dry. HEAD: Normocephalic. EYES: No scleral icterus. No injection or drainage. NECK: Supple, trachea midline. No JVD or lymphadenopathy. CARDIOVASCULAR: Regular rate and rhythm without murmurs, gallops, or rubs. RESPIRATORY: Breath sounds equal bilaterally. No accessory muscle use. GASTROINTESTINAL: Abdomen soft, non-tender, nondistended. MUSCULOSKELETAL: No cyanosis, or edema. BACK: Nontender without obvious deformity. No CVA tenderness. A/P Problem List: (1) Chest pain ICD Code: R07.9 - Chest pain, unspecified Status: Resolved (2) Tachycardia ICD Code: R00.0 - Tachycardia, unspecified (3) SOB (shortness of breath) ICD Code: R06.02 - Shortness of breath (4) Prostate CA ICD Code: C61 - Malignant neoplasm of prostate Assessment and Plan 77-year-old man with 1. Chest Pain: pleuritic in nature, possibly due to bronchospasm from postnasal drip/recent URI.CTA Pulm w/ significant atherosclerotic disease of aorta and coronary arteries, ACS ruled out per protocol with serial cardiac enzymes and EKGs. Currently on ASA, Statin, Metoprolol. NTG/Morphine prn. Check Lipid Profile. Consult Cardiology as needed for further evaluation. 2. Tachycardia: Secondary to above 3. SOB: resolved. recent URI/postnasal gtt w/ likely bronchospasm in addition to pulmonary metastasis on CTA, no PE noted. Symbicort, Xopenex prn, WBC however on chronic steroid therapy and no signs of infection on imaging, continue to hold off on antibiotics at this time. 4. Prostate CA: w/ Mets to spine, CTA Pulm showered scattered metastatic disease, pt unaware of pulmonary mets until now, following w/ Dr. Allen as outpatient, continue w/ outpatient follow up as scheduled. 5. DVT Prophylaxis: SCD/Deven Dutta MD December 14, 2017 08:16
[2017-12-14 08:25] LABS: AUTOMATED NEUTROPHIL # 15.1 TH/MM3 (1.8-7.7); BASOPHIL % 0.1 % (0.0-2.0); HEMATOCRIT 37.9 % (39.0-51.0); HEMOGLOBIN 12.9 GM/DL (13.0-17.0); LYMPHOCYTE # 0.5 TH/MM3 (1.0-4.8); MEAN CELL VOLUME 91.2 FL (80.0-100.0); MEAN CORPUSCULAR HEMOGLOBIN 31.1 PG (27.0-34.0); MEAN CORPUSCULAR HGB CONC 34.1 % (32.0-36.0); MEAN PLATELET VOLUME 7.1 FL (7.0-11.0); MONO % 4.5 % (0.0-8.0); MONOCYTE # 0.7 TH/MM3 (0-0.9); NEUT % 92.4 % (16.0-70.0); PLATELET COUNT 370 TH/MM3 (150-450); RED BLOOD COUNT 4.16 MIL/MM3 (4.50-5.90); RED CELL DISTRIBUTION WIDTH 13.5 % (11.6-17.2); WHITE BLOOD COUNT 16.4 TH/MM3 (4.0-11.0)
[2017-12-14] MEDS ORDERED: predniSONE 5 MG TAB PO SCH (09:00)
[2017-12-14] MEDS ORDERED: BUDESONIDE-FORMOTEROL 160/4.5 MCG INHALER INH SCH (09:00)
[2017-12-14] MEDS ORDERED: PANTOPRAZOLE SOD 40 MG DELAYED RELEASE TAB PO SCH (09:00)
[2017-12-14] MEDS ORDERED: HEPARIN SODIUM - SQ 10,000 UNITS/ML VIAL SQ SCH (09:00)
[2017-12-14] MEDS ORDERED: MULTIVITAMIN TAB PO SCH (09:00)
[2017-12-14] MEDS ORDERED: SODIUM CHLORIDE 0.9% FLUSH 10 ML FLUSH IV FLUSH SCH (09:00)
[2017-12-14] MEDS ORDERED: NON-FORMULARY DRUG (Multiple Vitamin (Multi-Vitamin Daily) 1 TAB) PO SCH (09:00)
[2017-12-14] MEDS ORDERED: ASPIRIN 81 MG CHEW TAB CHEW SCH (09:00)
[2017-12-14] MEDS ORDERED: DOCUSATE SODIUM 50 MG/SENNA 8.6 MG TAB PO SCH (09:00)
[2017-12-14] MEDS ORDERED: METOPROLOL TARTRATE 25 MG TAB PO SCH ×2 (09:00→21:00)
[2017-12-14 09:14] LABS: ALBUMIN 3.2 GM/DL (3.4-5.0); AST (GOT) 10 U/L (15-37); BICARBONATE 26.3 MEQ/L (21.0-32.0); BLOOD UREA NITROGEN 22 MG/DL (7-18); CALCIUM 8.9 MG/DL (8.5-10.1); CHLORIDE 100 MEQ/L (98-107); CHOLESTEROL 199 MG/DL (120-200); CREATININE 0.95 MG/DL (0.60-1.30); GLOMERULAR FILTRATION RATE 77 ML/MIN (>89); GLUCOSE,RANDOM 146 MG/DL (74-106); SODIUM (NA) 136 MEQ/L (136-145)
[2017-12-14 09:16] LABS: TRIGLYCERIDES 68 MG/DL (42-150)
[2017-12-14 09:21] LABS: ALKALINE PHOSPHATASE 65 U/L (45-117); ALT (GPT) 14 U/L (12-78); CHOLESTEROL/ HDL RATIO 2.93 RATIO; HDL CHOLESTEROL 67.8 MG/DL (40.0-60.0); LDL CHOLESTEROL 118 MG/DL (0-99); TOTAL BILIRUBIN ADULT 0.4 MG/DL (0.2-1.0); TOTAL PROTEIN 6.6 GM/DL (6.4-8.2); TROPONIN I LESS THAN 0.02 NG/ML (0.02-0.05)
[2017-12-14] MEDS ORDERED: METOPROLOL TARTRATE 25 MG TAB PO ONE (14:30)
[2017-12-14] MEDS ORDERED: METO25TA3 PO (15:54)
[2017-12-14] MEDS ORDERED: SODIUM CHLORIDE 0.65% NASAL SPRAY 45 ML BTL EACH NARE PRN (16:00)
--- NOTE | 2017-12-14 16:33 | HHI.DCPOC ---
Discharge Care Plan Diagnosis: (1) Chest pain (2) Prostate CA (3) Tachycardia (4) SOB (shortness of breath) Your Health Problems Are: Chest Pain Shortness of Breath Goals to Promote Your Health * To prevent worsening of your condition and complications * To maintain your health at the optimal level Directions to Meet Your Goals Take your medications as prescribed Follow your dietary instruction Follow activity as directed Keep your appointments as scheduled Take your immunizations and boosters as scheduled If your symptoms worsen call your PCP, if no PCP go to Urgent Care Center or Emergency Room Smoking is Dangerous to Your Health. Avoid second hand smoke Call the 24-hour hour crisis hotline for domestic abuse at [facility] December 14, 2017 4:33 pm
[2017-12-14] MEDS ORDERED: LIPI10TA PO (16:44)
[2017-12-14] MEDS ORDERED: Budeson-Formot 160-4.5 Mcg Inh INH (16:45)
[2017-12-14] MEDS ORDERED: SODIUM CHLORIDE 0.65% EACH NARE (16:45)
--- NOTE | 2017-12-14 17:44 | HHI.PR ---
Addendum to Inpatient Note Addendum Reason: Additional Documentation Additional Information Discharge patient to home Condition on discharge: Improved Regular Diet as tolerated Ad [place] activity Rx written:See EMR Follow-up with primary care physician in 1week Deven Jain MD December 14, 2017 17:44
--- NOTE | 2017-12-14 18:31 | EKG ---
Date Performed: 12/13/2017 Time Performed: 16:57:52 PTAGE: 77 years EKG: SINUS TACHYCARDIA ABNORMAL RHYTHM ECG PREVIOUS TRACING : 09/10/2012 10.34 Since the previous tracing, no significant change noted DOCTOR: Temo Augustin Interpretating Date/Time 12/14/2017 18:29:43
[2017-12-14] MEDS ORDERED: TAMSULOSIN HCL 0.4 MG CAP PO SCH (21:00)
[2017-12-14] MEDS ORDERED: ATORVASTATIN 10 MG TAB PO SCH (21:00)
== END 2017-12-14 18:11 | disposition home or self-care (01) ==
LOC: NEPC 16:53 → NEDA 21:52 → NEPFCDU 22:54
PROVIDERS: ADMIT Hospitalist; ATTEND Hospitalist
DX: R07.2 Precordial pain (principal); C61 Malignant neoplasm of prostate; C78.00 Secondary malignant neoplasm of unspecified lung; C79.51 Secondary malignant neoplasm of bone; I10 Essential (primary) hypertension; F17.200 Nicotine dependence, unspecified, uncomplicated; E78.00 Pure hypercholesterolemia, unspecified; K21.9 Gastro-esophageal reflux disease without esophagitis; F40.240 Claustrophobia; Z79.52 Long term (current) use of systemic steroids; Z79.82 Long term (current) use of aspirin; Z86.79 Personal history of other diseases of the circulatory system; Z82.49 Family history of ischemic heart disease and other diseases of the circulatory system
CPT/HCPCS: 71045; 71275; 80048; 80053; 80061; 82550; 84484; 85025; 85610; 85730; 93005; 94640; 94664; 96361; 96372; 96374; 99291; G0378; J1644; J2270; J7030; J7512; Q9967